=== PATIENT | female | born 1980 | race Caucasian/White ===

== ENCOUNTER 2023-09-28 09:54 | Inpatient (IN) ==
--- NOTE | 2023-09-15 10:33 | PAT Medication Instructions ---
Medication Instructions Date of Service September 15, 2023 Home Medications ascorbic acid (vitamin C) 500 mg tablet (Vitamin C) 500 mg PO QPM cetirizine 10 mg tablet 10 mg PO QAM cholecalciferol (vitamin D3) 25 mcg (1,000 unit) chewable tablet (Vitamin D3) 25 mcg PO QPM divalproex 250 mg tablet,delayed release (Depakote) 250 mg PO BID famotidine 40 mg tablet 40 mg PO QPM ferrous sulfate 325 mg (65 mg iron) tablet 325 mg PO BID gabapentin 300 mg capsule 300 mg PO UD lamotrigine 150 mg tablet (Lamictal) 150 mg PO QPM lamotrigine 200 mg tablet (Lamictal) 200 mg PO QAM multivitamin 1 tab PO QPM pantoprazole 40 mg tablet,delayed release 40 mg PO QAM risperidone 1 mg tablet (Risperdal) 1 mg PO UD Continue as directed risperidone 1 mg tablet (Risperdal) 1 mg PO UD gabapentin 300 mg capsule 300 mg PO UD DO NOT take the morning of surgery cetirizine 10 mg tablet 10 mg PO QAM ferrous sulfate 325 mg (65 mg iron) tablet 325 mg PO BID Take morning of surgery With a small sip of water, OTHERWISE NOTHING TO EAT OR DRINK AFTER MIDNIGHT: divalproex 250 mg tablet,delayed release (Depakote) 250 mg PO BID lamotrigine 200 mg tablet (Lamictal) 200 mg PO QAM pantoprazole 40 mg tablet,delayed release 40 mg PO QAM Take evening before surgery ascorbic acid (vitamin C) 500 mg tablet (Vitamin C) 500 mg PO QPM cholecalciferol (vitamin D3) 25 mcg (1,000 unit) chewable tablet (Vitamin D3) 25 mcg PO QPM divalproex 250 mg tablet,delayed release (Depakote) 250 mg PO BID famotidine 40 mg tablet 40 mg PO QPM ferrous sulfate 325 mg (65 mg iron) tablet 325 mg PO BID lamotrigine 150 mg tablet (Lamictal) 150 mg PO QPM multivitamin 1 tab PO QPM Other Notes If you have any questions please call us at [phone] or [phone] or [phone] or [phone]
--- NOTE | 2023-09-17 11:59 | Anesthesiology Consultation ---
Date of Service September 17, 2023 Assessment & Plan (1) Encounter for pre-operative examination: Plan - check urine test STAT am DOS. - will request copy of [facility] sleep study 09/15/23, Dr. Bustamante and left leg Doppler from [facility]. - upcoming [facility] PCP appointment pre-op 09/21/23 Dr. Pita Damon and pre-op CXR. PAT testing to be faxed to PCP. - request CXR done at [facility] this week per patient's care team. They were also provided with order to have done at PCP office 09/21/23 if no CXR is received from [facility]. Only CXR received was from 08/2022, no CXR was available on patient portal at PAT visit. I contacted Kassy who patient requested be primary contact and she is aware, states they will have CXR done 09/21/23. - Patient and mother, Poornima, are requesting patient's mother remain overnight. They state this was already discussed with case management and they are aware that determination is made the day of surgery, denied concerns with this but are hopeful she can remain overnight. I also sent an email to the OR and housing supervisors regarding request. Patient had anxiety at PAT visit regarding surgery which was alleviated with breathing techniques guided by her mother and friend. I inquired if patient would be interested in a visit from a therapy dog during hospitalization and she expressed she would like this if possible. I notified [place] contact and they will plan to coordinate visiting patient with therapy dog during her hospitalization. Chart Review Chart Review: Pending: Refer to Additional Notes / Consult section and Patient seen in Pre Admission Testing Teaching & Discussion Pre-Anesthesia Teaching/Discussion Notes: Instructed NPO after midnight before surgery, except medications with 15 cc of water. Medication instructions provided according to the PAT guidelines. History Surgery Operation Date: 09/28/23 09:35 Proposed Procedures p L4-L5 Decompression and Fusion with Spinal Cord Monitoring - Rudy Shah, She is accompanied today by her mother Poornima and Kassy, friend. 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 propranolol [From Inderal LA] Allergy Intermediate Hypotension Verified 09/14/23 15:34 hydromorphone [From Dilaudid] Allergy Mild "makes me Verified 09/14/23 15:34 tired" latex Allergy Mild Rash Verified 09/14/23 15:34 Sulfa (Sulfonamide Allergy Mild Rash Verified 09/14/23 15:34 Antibiotics) Iodinated Contrast Media Allergy Unknown unsure of Verified 09/14/23 15:34 reaction Medications Home Medications Medication Instructions Recorded Confirmed Last Taken ascorbic acid (vitamin C) 500 mg 500 mg PO QPM 09/14/23 09/14/23 Unknown tablet (Vitamin C) cetirizine 10 mg tablet 10 mg PO QAM 09/14/23 09/14/23 Unknown cholecalciferol (vitamin D3) 25 25 mcg PO QPM 09/14/23 09/14/23 Unknown mcg (1,000 unit) chewable tablet (Vitamin D3) divalproex 250 mg tablet,delayed 250 mg PO BID 09/14/23 09/14/23 Unknown release (Depakote) famotidine 40 mg tablet 40 mg PO QPM 09/14/23 09/14/23 Unknown ferrous sulfate 325 mg (65 mg 325 mg PO BID 09/14/23 09/14/23 Unknown iron) tablet gabapentin 300 mg capsule 300 mg PO UD 09/14/23 09/14/23 Unknown lamotrigine 150 mg tablet 150 mg PO QPM 09/14/23 09/14/23 Unknown (Lamictal) lamotrigine 200 mg tablet 200 mg PO QAM 09/14/23 09/14/23 Unknown (Lamictal) multivitamin 1 tab PO QPM 09/14/23 09/14/23 Unknown pantoprazole 40 mg tablet,delayed 40 mg PO QAM 09/14/23 09/14/23 Unknown release risperidone 1 mg tablet (Risperdal) 1 mg PO UD 09/14/23 09/14/23 Unknown Past Medical History Medical History (Updated 09/17/23 @ 12:23 by Miriam Flor PA-C) Anemia Bipolar disorder Degenerative disc disease Dysphagia "barium swallowing study done 09/14/23 at [facility]" normal results per care team Elevated lactic acid level following up with [facility] endocrinology GERD (gastroesophageal reflux disease) controlled, stable per pt History of DVT (deep vein thrombosis) bilat lower extremities years ago-recent RLE Doppler negative History of esophageal dilatation Migraine Post traumatic stress disorder Psychogenic nonepileptic seizure last 07/2023 Patient denies h/o stroke, heart attack, heart failure, DM, HTN, or blood transfusions. 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 History of bunionectomy left History of cholecystectomy History of colonoscopy History of esophagogastroduodenoscopy (EGD) History of tooth extraction S/P hardware removal left foot 05/2023 Past Anesthesia History No Family Hx of Anesthesia Complications and Other (difficult to wake after anesthesia) History of PONV No Hx of PONV and Hx of Motion Sickness Social History Smoking Status: Former smoker Do You Dip or Chew Tobacco: No Smoking End Date: late Hx Alcohol Use: No substance use type: does not use Review of Systems Patient denies chest pain, shortness of breath, dyspnea on exertion, fever, chills, cough, wheezing, or palpitations. Physical Exam Vital Signs Vitals BP 115/83 P 88 TEMP 97.9 SP02 96% on RA RESP 18 Physical Patient resting comfortably in chair in no acute distress, alert and oriented, responding appropriately throughout visit Full cervical extension range of motion without pain TMD 3.5 finger breadths Mallampati Score 2 Dentition: edentulous, full upper and lower dentures Lungs: normal respiratory effort. Good air movement, clear throughout to auscultation, no adventitious breath sounds Cardiac: regular rate and rhythm, no murmurs noted Carotid arteries: negative bruit bilat Lab Results Anesthesia Preop Results Results Anesthesia Widget: WBC 4.98 K/ul (4.8-10.8) 09/17/23 Hgb 12.9 g/dl (12.0-16.0) 09/17/23 Hct 38.9 % (37.0-47.0) 09/17/23 Plt 256 K/uL (130-400) 09/17/23 Na 140 mmol/L (136-145) 09/17/23 K 4.3 mmol/L (3.5-5.1) 09/17/23 Cl 104 mmol/L (98-107) 09/17/23 CO2 30 mmol/L (21-32) 09/17/23 BUN 15 mg/dl (6-23) 09/17/23 Creat 0.59 mg/dl (0.6-1.2) L 09/17/23 Glucose Level 76 mg/dl (70-99(Fasting)) 09/17/23 PT 10.9 Seconds (9.0-12.0) 09/17/23 PTT 36 Seconds (21-31) H 09/17/23 INR 1.0 (0.9-1.1) 09/17/23 Urine Color Yellow 09/17/23 Urine Appearance Clear (Clear) 09/17/23 Urine pH 6.5 (4.5-7.5) 09/17/23 Urine Specific [place] 1.017 (1.000-1.030) 09/17/23 Urine Protein Negative (Negative) 09/17/23 Urine Glucose (UA) Negative (Negative) 09/17/23 Urine Ketones Negative (Negative) 09/17/23 Urine Blood Negative (Negative) 09/17/23 Urine Nitrite Negative (Negative) 09/17/23 Urine Bilirubin Negative (Negative) 09/17/23 Urine Urobilinogen Negative (Negative) 09/17/23 Urine Leukocyte Esterase Negative (Negative) 09/17/23 Blood Type O Positive 09/17/23 Antibody Screen NEGATIVE 09/17/23 Testing Electrocardiogram Date: 09/17/23 NSR, rate 81 bpm Incomplete RBBB
[~2023-09-28 09:54] MED LIST: MIDAZOLAM HCL 1 MG/ML 2ML VIAL ONE; fentaNYL citrate PF 100 MCG/2 ML VIAL ONE
[2023-09-28] MEDS ORDERED: ONDANSETRON INJ 2 MG/ML 2 ML VIAL IV PRN ×2 (11:07→15:26)
[2023-09-28] MEDS ORDERED: ePHEDrine sulfate 50 MG/ML AMP IV PRN (11:07)
[2023-09-28] MEDS: ACETAMINOPHEN 500 MG TAB PO SCH (11:07)
[2023-09-28] MEDS ORDERED: ATROPINE SULFATE 0.1 MG/ML 10ML SYR IV PRN (11:07)
[2023-09-28] MEDS: GABAPENTIN 900 MG DOSE PO SCH (11:08)
--- NOTE | 2023-09-28 11:13 | History & Physical Bridge Note ---
Date of Service September 28, 2023 History & Physical Bridge Note I have examined the patient, reviewed the History & Physical and in the interval since the performance of the History & Physical I have noted the following changes of clinical significance: no changes noted
--- NOTE | 2023-09-28 11:14 | History & Physical Report ---
Date of Service September 28, 2023 Assessment & Plan (1) Neurogenic claudication due to lumbar spinal stenosis: Plan: L4-L5 decompression and fusion History of Present Illness Chief Complaint: Back and bilateral leg pain Primary Care Provider: Pita Damon MD This is a 43-year-old female presents to clinic persistent back and leg pain Course of nonoperative care she is here for surgical invention. 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 propranolol [From Inderal LA] Allergy Intermediate Hypotension Verified 09/28/23 10:33 hydromorphone [From Dilaudid] Allergy Mild "makes me Verified 09/28/23 10:33 tired" latex Allergy Mild Rash Verified 09/28/23 10:33 Sulfa (Sulfonamide Allergy Mild Rash Verified 09/28/23 10:33 Antibiotics) Iodinated Contrast Media Allergy Unknown unsure of Verified 09/28/23 10:33 reaction Home Medications Medication Instructions Recorded Confirmed Type ascorbic acid (vitamin C) 500 mg 500 mg PO QPM 09/14/23 09/28/23 History tablet (Vitamin C) cetirizine 10 mg tablet 10 mg PO QAM 09/14/23 09/28/23 History cholecalciferol (vitamin D3) 25 25 mcg PO QPM 09/14/23 09/28/23 History mcg (1,000 unit) chewable tablet (Vitamin D3) divalproex 250 mg tablet,delayed 250 mg PO BID 09/14/23 09/28/23 History release (Depakote) famotidine 40 mg tablet 40 mg PO QPM 09/14/23 09/28/23 History ferrous sulfate 325 mg (65 mg 325 mg PO BID 09/14/23 09/28/23 History iron) tablet gabapentin 300 mg capsule 300 mg PO UD 09/14/23 09/28/23 History lamotrigine 150 mg tablet 150 mg PO QPM 09/14/23 09/28/23 History (Lamictal) lamotrigine 200 mg tablet 200 mg PO QAM 09/14/23 09/28/23 History (Lamictal) multivitamin 1 tab PO QPM 09/14/23 09/28/23 History pantoprazole 40 mg tablet,delayed 40 mg PO QAM 09/14/23 09/28/23 History release risperidone 1 mg tablet (Risperdal) 1.5 mg PO QAM 09/14/23 09/28/23 History Past Med/Surg History Medical History (Updated 09/28/23 @ 11:14 by Rudy Shah DO) History of DVT (deep vein thrombosis) bilat lower extremities years ago-recent RLE Doppler negative Psychogenic nonepileptic seizure last 07/2023 Elevated lactic acid level following up with [facility] endocrinology Degenerative disc disease History of esophageal dilatation Dysphagia "barium swallowing study done 09/14/23 at [facility]" normal results per care team GERD (gastroesophageal reflux disease) controlled, stable per pt Anemia Post traumatic stress disorder Bipolar disorder Migraine Surgical History 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 History of anesthesia reaction very difficulty to wake up S/P hardware removal left foot 05/2023 History of bunionectomy left History of esophagogastroduodenoscopy (EGD) History of colonoscopy History of cholecystectomy History of tooth extraction Family History Other No family history of adverse response to anesthesia Social History Smoking Status: Former smoker Tobacco Type: Cigarettes Smoking End Date: late ; Second Hand Exposure: No; Do You Dip or Chew Tobacco: No; Hx Alcohol Use: No Preferred Language: Romanian Developer Analyst Required: No Beliefs That Will Affect Care: None Current Living Situation: Alone Current Living Situation Comment: friends assist Feels Safe at Home: Yes Safety Concerns: Feels Safe At This Time Assistive Devices: Cane, Denture - Upper, Denture - Lower, Glasses, Walker and Wheelchair Physical Exam Physical Exam: Patient is alert and oriented Heart regular rhythm Lungs clear Results & Data Results & Data Vital Signs (Past 12 Hours) Vital Signs Temp Pulse Resp BP Pulse Ox O2 Del Method 09/28/23 10:33 36.6 C 91 H 18 124/88 100 Room Air
[2023-09-28] MEDS: LR 15ML/HR IV SCH (11:26)
[2023-09-28] MEDS: ceFAZolin 2000MG 2,000 MG/15 ML SYR IV SCH ×2 (11:47→20:39)
[2023-09-28] MEDS: LR 60ML/HR IV SCH (11:49)
[2023-09-28] MEDS ORDERED: PROPOFOL IV EMULSION 10 MG/ML 20 ML VIAL IV ONE (12:51)
[2023-09-28] MEDS ORDERED: ONDANSETRON INJ 2 MG/ML 2 ML VIAL ONE ×2 (12:51→13:41)
[2023-09-28] MEDS ORDERED: LIDOCAINE 2% 2 ML VIAL/AMP(20MG/ML) INFIL ONE (12:51)
[2023-09-28] MEDS ORDERED: ROCURONIUM BROMIDE 10 MG/ML 5 ML VIAL IV ONE (12:51)
[2023-09-28] MEDS ORDERED: DEXAMETHASONE SOD INJ 4 MG/ML VIAL ONE (12:51)
[2023-09-28] MEDS ORDERED: fentaNYL citrate PF 100 MCG/2 ML VIAL ONE (12:51)
[2023-09-28] MEDS ORDERED: ePHEDrine sulfate 50 MG/ML AMP ONE (12:52)
[2023-09-28] MEDS: ceFAZolin 330 MG/ML 1 GM VIAL ONE (13:14)
[2023-09-28] MEDS ORDERED: GLYCOPYRROLATE 0.2 MG/ML VIAL ONE (13:29)
[2023-09-28] MEDS ORDERED: NEOSTIGMINE METHYLSULFATE 1 MG/ML 10ML VIAL ONE (13:29)
[2023-09-28] MEDS: BUPIVACAINE/EPINEPHRINE 0.25% 1:200,000 30 ML VIAL ONE (13:33)
[2023-09-28] MEDS: FLOSEAL HEMOSTATIC MATRIX 10ML TOP ONE (13:33)
--- NOTE | 2023-09-28 13:45 | Operative Report ---
Post Operative Report Pre & Post Diagnosis Operation Date: 09/28/23 11:35 Pre-Op Diagnosis: Neurogenic Claudication due to Lumbar Spinal Stenosis Lumbar spinal stenosis L4-5 Obesity Post-Op Diagnosis: Same I identified the patient and participated in the time-out.: Yes Procedure Operation Date: 09/28/23 11:35 Actual Procedures #1 lumbar decompression with bilateral medial facetectomies and foraminotomies L3-L4 L4-5. #2 posterior spinal fusion L4-L5. #3 placed posterior instrumentation L4-L5. #4 interbody fusion L4-5. #5 placement Spira 8 x 22 mm at L4-L5. #6 placement locally harvested morselized autograft in the posterior gutters. #7 placement infuse collagen sponge combined with Koros bone graft in the posterior lateral gutters and Morpheus bone graft in the interbody space. Surgeon Rudy Shah, DO Cardiac Monitor Mary Ellen Luu Estimated Blood Loss 300 Findings See Below Patient is 5 foot 4 weighing over 92 kg with a BMI in excess of 34. Patient's body habitus did contribute to significant technical difficulty with positioning exposure and the procedure itself adding at least 50% increased operative time. Specimens None Indications This is a 43-year-old female presents above-mentioned diagnosis after failing course of nonoperative care is here for surgical invention. Description of Procedure Patient was met with identified informed consent obtained. Patient was then taken to the operative suite underwent intubation placed in a prone position on the Zeus table on top of the Geovani frame. All bony prominences well-padded eyes inspected to ensure no external pressure placed upon the. This point lumbar spine was prepped and draped in normal sterile fashion. Sharp dissection with the assistance of Bovie cautery performed down to and exposing the lamina transverse processes of L4 and L5 bilaterally. I then performed a complete laminectomy of L4 including bilateral medial facetectomies and foraminotomies addressing severe spinal stenosis. I also proceeded to perform a partial laminectomy of L3 including bilateral medial facetectomies for complete decompression of the exiting root. Pedicle screws then placed at L4-5 bilaterally with assistance of fluoroscopy and the purposes ella placed. By way of a transforaminal approach on the right a complete discectomy of L4-L5 was performed endplates guided to subcortical bleeding bone and an 8 x 22 mm Spira cage filled with Morpheus bone graft tapped in position. The rods were then locked in final position bilaterally. The transverse processes of L4-5 burred to subcortically bone. Infuse collagen sponge combined with Koros and local autograft placed in the posterior lateral gutters. 15 round MARTHA drain inserted. The incision was then closed with 1 Vicryl the fascia 2-0 Vicryl subcutaneously and 4 Monocryl for final skin closure. Steri-Strips sterile dressing placed. Patient waken taken PACU stable condition. Please note spinal cord monitoring was utilized at the procedure no changes noted. Lastly Mary Ellen Luu was present at the entire surgery and all the patient positioning complex portion of the surgery and final skin closure. I attest to the content of the Intraoperative Record and any orders documented therein. Any exceptions are noted below.
--- NOTE | 2023-09-28 14:16 | Fluoroscopy Report ---
FL lumbar spine 2-3V CLINICAL HISTORY: L4-L5 DECOMPRESSION AND FUSION COMPARISON STUDY: None. FLUOROSCOPY TIME: 32.7 seconds. Ka, r: 54.80 mGy FLUOROSCOPIC IMAGES: 2 FINDINGS: Fluoroscopy was provided during L4-L5 discectomy with interbody spacer placement, posterior decompression and pedicle screw fusion. IMPRESSION: Fluoroscopy provided during L4-L5 decompression and fusion. ACT 112: Negative or not required by law. Electronically signed by: James Narvaez M.D. 09/28/2023 2:13 PM
--- NOTE | 2023-09-28 14:42 | Anesthesiology Progress Note ---
Date of Service September 28, 2023 Anesthesia Post Procedure Vital Signs Vital Signs: Temp Pulse Resp BP Pulse Ox O2 Del Method O2 Flow Rate 09/28/23 14:35 36.3 C L 73 14 116/76 98 Oxymask 3 09/28/23 14:25 77 15 118/70 98 Oxymask 3 09/28/23 14:10 68 12 122/63 98 Oxymask 5 09/28/23 13:59 36.6 C 76 12 123/55 L 98 Oxymask 5 09/28/23 10:33 36.6 C 91 H 18 124/88 100 Room Air Pain Intensity Bilateral Back: Pain Intensity: 0 Transfer of Care Handoff Completed per policy Notes Mental Status: alert / awake / arousable and participated in evaluation Patient Amnestic to Procedure: Yes Nausea / Vomiting: adequately controlled Pain: improving with treatment Airway Patency, RR, SpO2: stable & adequate BP & HR: stable & adequate Hydration State: stable & adequate Anesthetic Complications: no major complications apparent and Pt Satisfied with anesthetic care
[2023-09-28] MEDS: fentaNYL citrate PF 100 MCG/2 ML VIAL IV PRN (14:50)
[2023-09-28] MEDS ORDERED: ONDANSETRON 4 MG OD TAB PO PRN (15:26)
[2023-09-28] MEDS ORDERED: DO NOT ADMINISTER FLU VACCINE PRN (15:26)
[2023-09-28] MEDS ORDERED: hydrOXYzine HCl 25 MG TAB PO PRN (15:26)
[2023-09-28] MEDS ORDERED: MAGNESIUM HYDROXIDE SUSP 30 ML UDC PO PRN (15:26)
[2023-09-28] MEDS ORDERED: bisacodyL 10 MG SUPP PR PRN (15:26)
[2023-09-28] MEDS ORDERED: PROMETHAZINE HCL 12.5 MG in SODIUM CHLORIDE 0.9% 50 ML IV PRN (15:26)
[2023-09-28] MEDS ORDERED: METOCLOPRAMIDE HCL INJ 5 MG/ML 2 ML VIAL IV PRN (15:26)
[2023-09-28] MEDS ORDERED: LORazepam 0.5 MG in SYRINGE 0.25 ML IV PRN (15:26)
[2023-09-28] MEDS ORDERED: NALOXONE HCL 0.4 MG/1 ML VIAL/CARP IV PRN (15:26)
[2023-09-28] MEDS ORDERED: DO NOT ADMINISTER PNEUMOCOCCAL VACCINE PRN (15:26)
[2023-09-28] MEDS ORDERED: ALUMINUM/MAGNESIUM SUSP 30 ML UDC PO PRN (15:26)
[2023-09-28] MEDS ORDERED: SOD PHOSPHATE/SOD BIPHOSPHATE ENEMA 132 ML BTL PR PRN (15:26)
[2023-09-28] MEDS ORDERED: FAMOTIDINE 20 MG TAB PO PRN (15:26)
[2023-09-28] MEDS ORDERED: LORazepam 0.5 MG TAB PO PRN (15:26)
[2023-09-28] MEDS ORDERED: ACETAMINOPHEN 500 MG TAB PO PRN (15:26)
[2023-09-28] MEDS ORDERED: diphenhydrAMINE Capsule 25 MG CAP PO PRN (15:26)
[2023-09-28] MEDS: LACTATED RINGER'S 1,000 ML IV SCH (15:50)
[2023-09-28] MEDS: MoRPHine SULFATE 4 MG/ML 1 ML CARP\\VIAL IV PRN (16:08)
[2023-09-28] MEDS: MoRPHine SULFATE 2 MG/ML CARP IV PRN (20:39)
[2023-09-28] MEDS: GABAPENTIN 300 MG CAP PO SCH ×2 (20:40→20:47)
[2023-09-28] MEDS: FERROUS SULFATE 325 MG TAB PO SCH (20:40)
[2023-09-28] MEDS: lamoTRIgine 25 MG TAB PO SCH (20:40)
[2023-09-28] MEDS: DOCUSATE SODIUM/SENNA 50/8.6MG TAB PO SCH (20:41)
[2023-09-28] MEDS: DIVALPROEX DELAY RELEASE 250 MG TABEC PO SCH (20:41)
[2023-09-28] MEDS: FAMOTIDINE 40 MG TABLET PO SCH (20:41)
[2023-09-28] MEDS: ASCORBIC ACID 500 MG TAB PO SCH (20:41)
[2023-09-28] MEDS: CHOLECALCIFEROL 25 MCG (1000 UNITS) TAB PO SCH (20:41)
[2023-09-28] MEDS: MULTIVITAMIN TAB PO SCH (20:42)
[2023-09-28] MEDS: lamoTRIgine 100 MG TAB PO SCH (20:42)
[2023-09-28] MEDS: ACETAMINOPHEN 1,000 MG/100 ML VIAL IV PRN (23:18)
[2023-09-28] MEDS: oxyCODONE HCL IR 5 MG TAB (IMMEDIATE RELEASE) PO PRN (23:18)
[2023-09-29] MEDS: POLYETHYLENE (MIRALAX) 17 GM PACK PO SCH (06:32)
[2023-09-29 07:29] LABS: Basophils # (auto) 0.02 K/uL (0.00-0.20); Basophils % (auto) 0.2 %; Eosinophils # (auto) 0.01 K/uL (0.00-0.50); Eosinophils % (auto) 0.1 %; Hematocrit (blood only) 31.5 % (37.0-47.0); Hemoglobin 10.5 g/dl (12.0-16.0); Immature Granulocytes # (auto) 0.04 K/uL (0.01-0.20); Immature Granulocytes % (auto) 0.4 %; Lymphocytes # (auto) 2.25 K/uL (1.20-3.40); Lymphocytes % (auto) 22.2 %; Mean Corpuscular Hemoglobin 34.2 pg (25.0-34.0); Mean Corpuscular Hgb Conc 33.3 g/dL (32.0-36.0); Mean Corpuscular Volume 102.6 fL (80.0-100.0); Mean Platelet Volume 9.6 fL (9.4-12.4); Monocytes # (auto) 1.28 K/uL (0.11-0.59); Monocytes % (auto) 12.6 %; Neutrophils # (auto) 6.54 K/uL (1.40-6.50); Neutrophils % (auto) 64.5 %; Platelet Count 232 K/uL (130-400); RDW Coefficient of Variation 12.4 % (11.5-14.5); RDW Standard Deviation 46.7 fL (36.4-46.3); Red Blood Count 3.07 M/uL (4.20-5.40); White Blood Count 10.14 K/ul (4.8-10.8)
[2023-09-29 07:45] LABS: BUN Creatinine Ratio 11.3 (10-20); Calcium 9.4 mg/dl (8.6-10.3); Creatinine Clr Calc Pharmacy 126.2 ml/min; Est GFR (African American) 126.2 ml/min; Est GFR (Non-African American) 108.9 ml/min; Potassium 4.1 mmol/L (3.5-5.1)
--- NOTE | 2023-09-29 08:36 | Consultation ---
Date of Consultation September 29, 2023 Assessment & Plan (1) Neurogenic claudication due to lumbar spinal stenosis: (2) Psychogenic nonepileptic seizure: (3) History of DVT (deep vein thrombosis): (4) Anemia: (5) Dysphagia: (6) History of brain shunt: (7) Bipolar disorder: (8) GERD (gastroesophageal reflux disease): Plan Ms. Crouch is a 43 year old that presents to [facility] for an elective decompression and fusion of L4-L5 under the care of Dr. Shah after failed conservative management. PMH includes: H/O DVT, psychogenic nonepileptic seizures, bipolar disorder, H/O brain shunt, and GERD. Patient surgery occurred yesterday 09/27 and post operatively she is doing well. She had an EBL of 300mL and Hgb this morning 10.5. She is slightly soft on her BP, does not take any anti-hypertensives. She took two doses of IV Morphine yesterday and Tylenol around midnight last night for pain control. She is passing flatulence and advancing her diet; tolerating a soft diet without N/V. Neurogenic claudication due to lumbar spinal stenosis: POD#1 s/p decompression and fusion L4-L5 with Dr. Shah. Per ortho for pain control, wound care, anticoagulation and activities. Monitor H&H, today Hgb 10.5; baseline pre op 12.9 Has MARTHA drain x1 continue incentive spirometry PT/OT when appropriate Psychogenic nonepileptic seizure: Chronic Takes Depakote and Lamictal; continue Last seizure Anemia: Acute Hemoglobin 10.5 EBL during surgery 300 mL No active signs of overt bleeding Preop Hgb on 09/16 12.9 Recheck Hgb at 1200 to ensure holding H/O DVT: Chronic Occurred years ago; not on any A/C Dysphagia: Chronic Barium swallow performed at [facility] negative Advancing diet nicely Bipolar disorder: Chronic Takes Risperdal; continue GERD: Chronic Takes pantoprazole; continue 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 All of the aforementioned completed while collaborating with the assigned attending physician for a full treatment plan. Please see their addendum for further details. Supervising Physician Co-Signing Physician Notes 43-year-old lady was seen and examined at bedside as a follow-up of medical management status post lumbar spine surgery. Postoperative day 1. Patient reports pain fairly under control, MARTHA drain with minimal serosanguineous collection noted. Patient reports LLE radicular symptoms improvement. Blood pressure on soft side, continue with IV fluid. Monitor for acute blood loss anemia. Take other home medications as able. On examination: Patient sitting up in chair, on room air, NAD, low back with clean dressing without soakage, MARTHA drain with minimal serosanguineous collection noted. Rest of the examination as above. I have seen and examined the patient and have discussed the case with the provider above. I agree with the assessment and plan as stated. History of Present Illness Requesting Physician: Dr. Shah Reason for Consultation: post operative medical consult Attending Physician: Freddy Gerard MD History of Present Illness Ms. Crouch is a 43 year old female that presents to [facility] for an elective decompression and fusion of L4-L5 under the care of Dr. Shah after failed conservative management. PMH includes: H/O DVT, psychogenic nonepileptic seizures, bipolar disorder, H/O brain shunt, and GERD. Patient surgery occurred yesterday 09/27 and post operatively she is doing well. She had an EBL of 300mL and Hgb this morning 10.5. She is slightly soft on her BP, does not take any anti-hypertensives. Repeat BP 116 systolic. Has fluids infusing. She took two doses of IV Morphine yesterday and Tylenol around midnight last night for pain control. She is passing flatulence and advancing her diet; tolerating a soft diet without N/V. Pt denies STANTON, dizziness, SOB, chest pain, palpitations, N/V/D, dysuria, hematoch ezia, neuropathy in her extremities. She does have a component of intellect challenge; highly functioning. [facility] Hospitalist service was consulted for post-op medical management. We are available 29/12 via tiger text for any questions or concerns. Thank you kindly for consulting us. 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 propranolol [From Inderal LA] Allergy Intermediate Hypotension Verified 09/28/23 10:33 hydromorphone [From Dilaudid] Allergy Mild "makes me Verified 09/28/23 10:33 tired" latex Allergy Mild Rash Verified 09/28/23 10:33 Sulfa (Sulfonamide Allergy Mild Rash Verified 09/28/23 10:33 Antibiotics) Iodinated Contrast Media Allergy Unknown unsure of Verified 09/28/23 10:33 reaction Home Medications Medication Instructions Recorded Confirmed Type ascorbic acid (vitamin C) 500 mg 500 mg PO QPM 09/14/23 09/29/23 History tablet (Vitamin C) cetirizine 10 mg tablet 10 mg PO QAM 09/14/23 09/29/23 History cholecalciferol (vitamin D3) 25 25 mcg PO QPM 09/14/23 09/29/23 History mcg (1,000 unit) chewable tablet (Vitamin D3) divalproex 250 mg tablet,delayed 250 mg PO BID 09/14/23 09/29/23 History release (Depakote) famotidine 40 mg tablet 40 mg PO QPM 09/14/23 09/29/23 History ferrous sulfate 325 mg (65 mg 325 mg PO BID 09/14/23 09/29/23 History iron) tablet gabapentin 300 mg capsule 300 mg PO UD 09/14/23 09/29/23 History lamotrigine 150 mg tablet 150 mg PO QPM 09/14/23 09/29/23 History (Lamictal) lamotrigine 200 mg tablet 200 mg PO QAM 09/14/23 09/29/23 History (Lamictal) multivitamin 1 tab PO QPM 09/14/23 09/29/23 History pantoprazole 40 mg tablet,delayed 40 mg PO QAM 09/14/23 09/29/23 History release risperidone 1 mg tablet (Risperdal) 1.5 mg PO QAM 09/14/23 09/29/23 History Patient History Medical History (Updated 09/29/23 @ 08:33 by MICHAEL Rodriguez) History of DVT (deep vein thrombosis) bilat lower extremities years ago-recent RLE Doppler negative Psychogenic nonepileptic seizure last 07/2023 Elevated lactic acid level following up with [facility] endocrinology Degenerative disc disease History of esophageal dilatation Dysphagia "barium swallowing study done 09/14/23 at [facility]" normal results per care team GERD (gastroesophageal reflux disease) controlled, stable per pt Anemia Post traumatic stress disorder Bipolar disorder Migraine Surgical History (Updated 09/29/23 @ 08:33 by MICHAEL Rodriguez) 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 History of anesthesia reaction very difficulty to wake up S/P hardware removal left foot 05/2023 History of bunionectomy left History of esophagogastroduodenoscopy (EGD) History of colonoscopy History of cholecystectomy History of tooth extraction Family History Other No family history of adverse response to anesthesia Social History Smoking Status: Former smoker Tobacco Type: Cigarettes Smoking End Date: late ; Second Hand Exposure: No; Do You Dip or Chew Tobacco: No; Hx Alcohol Use: No Preferred Language: Mozambican Communication Ability: Effective Flatwork Feeder Required: No Beliefs That Will Affect Care: None Current Living Situation: Alone Current Living Situation Comment: friends assist Feels Safe at Home: Yes Safety Concerns: Feels Safe At This Time Assistive Devices: Walker and Other Review of Systems Review of Systems: Neuro: (-) Falls, trauma, slurred speech HEENT: (-) STANTON, dizziness, dysphagia, visual or auditory changes CV: (-) CP, palpitations, swelling Resp: (-) SOB GI: (-) appetite changes, N/V/D, bowel changes : (-) urinary changes Skin: (-) rashes Psych: (-) anxiety, depression Physical Exam Physical Exam: Neuro: AAOx4, PERRLA, no aphagia, memory changes, CNII-XII grossly intact HEENT: head normocephalic, moist mucus membranes CV: S1/S2, (-) M/G/R, (-) edema, cap refill < 3 seconds. MARTHA drain x1 roshni red bloody drainage. Resp: Lungs CTA in all huertas. On RA GI: Abdomen S/NT/ND, Ax4 bowel sounds, (-) CVA tenderness Musculoskeletal: 5/5 B/L UE strength, 3/5 B/L LE strength; (-) neuropathic symptoms Skin: (-) rashes , (-) erythema. Vertical dressing C/D/I Psych: euthymic mood Results & Data Vital Signs (Past 12 Hours) Vital Signs Temp Pulse Resp BP Pulse Ox O2 Del Method 09/29/23 06:37 36.8 C 91 H 16 99/65 L 99 Room Air 09/29/23 04:12 37.0 C 87 18 101/68 96 Room Air 09/28/23 23:08 36.8 C 95 H 18 118/76 96 Room Air Laboratory Results Short CBC 09/29/23 Range/Units 07:00 WBC 10.14 (4.8-10.8) K/ul Hgb 10.5 L (12.0-16.0) g/dl Hct 31.5 L (37.0-47.0) % Plt Count 232 (130-400) K/uL BMP 09/29/23 07:00 Sodium 136 Potassium 4.1 Chloride 102 Carbon Dioxide 28 BUN 7 Creatinine 0.62 Glucose 107 H Calcium 9.4
[2023-09-29] MEDS: PANTOprazole 40 MG TAB PO SCH (08:51)
[2023-09-29] MEDS: risperiDONE 0.5 MG TABLET PO SCH (08:51)
[2023-09-29] MEDS: CETIRIZINE HCL 10 MG TABLET PO SCH (08:52)
[2023-09-29] MEDS: lamoTRIgine 100 MG TAB PO SCH (09:13)
[2023-09-29] MEDS: dexAMETHasone 6 MG in SYRINGE 0 ML IV SCH (10:16)
--- NOTE | 2023-09-29 10:29 | Orthopedic Progress Note ---
Date of Service September 29, 2023 Assessment & Plan (1) Neurogenic claudication due to lumbar spinal stenosis: Plan: This time continue physical therapy monitor MARTHA operatively discharge home next few days. Admission and Anticipated Discharge Date Admission Date: September 28, 2023 Subjective Back pain controlled leg pain markedly improved Physical Exam Physical Exam: Patient is in the chair at the bedside. Skin strength testing. He is comfortable. Results & Data Vital Signs (Past 12 Hours) Vital Signs Temp Pulse Resp BP Pulse Ox O2 Del Method 09/29/23 09:14 94 H 18 116/77 97 Room Air 09/29/23 06:37 36.8 C 91 H 16 99/65 L 99 Room Air 09/29/23 04:12 37.0 C 87 18 101/68 96 Room Air 09/28/23 23:08 36.8 C 95 H 18 118/76 96 Room Air Queries Orthopedic Spine Obesity: Yes
[2023-09-29 12:21] LABS: Hematocrit (blood only) 33.6 % (37.0-47.0); Hemoglobin 11.1 g/dl (12.0-16.0); Mean Corpuscular Hemoglobin 33.8 pg (25.0-34.0); Mean Corpuscular Volume 102.4 fL (80.0-100.0); Mean Platelet Volume 9.4 fL (9.4-12.4); Platelet Count 214 K/uL (130-400); RDW Coefficient of Variation 12.5 % (11.5-14.5); RDW Standard Deviation 47.4 fL (36.4-46.3); Red Blood Count 3.28 M/uL (4.20-5.40); White Blood Count 9.33 K/ul (4.8-10.8)
[2023-09-29] MEDS ORDERED: NYSTATIN POWDER 15GM BTL EXT PRN (16:49)
--- NOTE | 2023-09-30 10:45 | Orthopedic Progress Note ---
Date of Service September 30, 2023 Assessment & Plan (1) Neurogenic claudication due to lumbar spinal stenosis: Plan: At this time we will continue physical therapy monitor MARTHA output with the discharge home tomorrow. Admission and Anticipated Discharge Date Admission Date: September 28, 2023 Subjective Back pain controlled leg pain improved Physical Exam Physical Exam: Patient is in bed. She is comfortable. Is for strength testing. Results & Data Vital Signs (Past 12 Hours) Vital Signs Temp Pulse Resp BP Pulse Ox O2 Del Method 09/30/23 07:45 37.2 C 95 H 18 108/67 94 Room Air Queries Orthopedic Spine Obesity: Yes
--- NOTE | 2023-09-30 15:31 | Hospitalist Progress Note ---
Date of Service September 30, 2023 Assessment & Plan (1) Neurogenic claudication due to lumbar spinal stenosis: (2) Psychogenic nonepileptic seizure: (3) History of DVT (deep vein thrombosis): (4) Anemia: (5) Dysphagia: (6) History of brain shunt: (7) Bipolar disorder: (8) GERD (gastroesophageal reflux disease): Plan Ms. Crouch is a 43 year old that presents to [facility] for an elective decompression and fusion of L4-L5 under the care of Dr. Shah after failed conservative ma nagement. PMH includes: H/O DVT, psychogenic nonepileptic seizures, bipolar disorder, H/O brain shunt, and GERD. Patient surgery occurred 09/27 and post operatively she is doing well. She had an EBL of 300mL. Neurogenic claudication due to lumbar spinal stenosis: POD#2 s/p decompression and fusion L4-L5 with Dr. Shah. Per ortho for pain control, wound care, anticoagulation and activities. Monitor H&H, today Hgb 10.5; baseline pre op 12.9 Has MARTHA drain x1 continue incentive spirometry PT/OT when appropriate Patient reports improvement in her radicular signs symptoms. Psychogenic nonepileptic seizure: Chronic Takes Depakote and Lamictal; continue Acute blood loss anemia: Preop hemoglobin of 12.9, postoperatively Hg 10.5. Anemia likely related to perioperative blood loss and dilutional component. Patient without any chest pain/palpitations/dizziness. Continue to monitor. H/O DVT: Chronic Occurred years ago; not on any A/C Dysphagia: Chronic Barium swallow performed at [facility] negative Advancing diet nicely Bipolar disorder: Chronic Takes Risperdal; continue GERD: Chronic Takes pantoprazole; continue History of brain shunt: Removed when patient was 1 or 1 years old Disposition: PCP: [facility] CODE STATUS: Full code VTE prophylaxis: Per admitting team Teds and SCDs Admission and Anticipated Discharge Date Admission Date: September 28, 2023 Subjective Patient is seen and examined at bedside. Patient was sitting up in chair, on room air, NAD, resting comfortably. Patient reports eating okay and moving bowels okay. Patient reports operative site pain under control, reports improvement in neurological signs or symptoms. Denies any other complaints. Physical Exam Physical Exam: Neuro: AAOx4, PERRLA, no aphagia, memory changes, CNII-XII grossly intact HEENT: head normocephalic, moist mucus membranes CV: S1/S2, (-) M/G/R, (-) edema, cap refill < 3 seconds. MARTHA drain x1 serosanguineous drainage -minimal. Resp: Lungs CTA in all huertas. On RA GI: Abdomen S/NT/ND, Ax4 bowel sounds, (-) CVA tenderness Musculoskeletal: 5/5 B/L UE strength, 3/5 B/L LE strength; (-) neuropathic symptoms Skin: (-) rashes , (-) erythema. Vertical dressing C/D/I Psych: euthymic mood Results & Data Results & Data Vital Signs (Past 12 Hours) Vital Signs Temp Pulse Resp BP Pulse Ox O2 Del Method 09/30/23 07:45 37.2 C 95 H 18 108/67 94 Room Air
[2023-09-30] MEDS: traMADol HCL 50 MG TABLET PO PRN (18:02)
--- NOTE | 2023-10-01 10:57 | Discharge Summary ---
Date of Service October 01, 2023 Admission HPI Per Admitting Provider This is a 43-year-old female presents to clinic persistent back and leg pain Course of nonoperative care she is here for surgical invention. 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 propranolol [From Inderal LA] Allergy Intermediate Hypotension Verified 09/28/23 10:33 hydromorphone [From Dilaudid] Allergy Mild "makes me Verified 09/28/23 10:33 tired" latex Allergy Mild Rash Verified 09/28/23 10:33 Sulfa (Sulfonamide Allergy Mild Rash Verified 09/28/23 10:33 Antibiotics) Iodinated Contrast Media Allergy Unknown unsure of Verified 09/28/23 10:33 reaction Consultations 09/28/23 15:26 Consult Hospitalist Routine Procedures Performed Operation Date: 09/28/23 11:35 Actual Procedures p L4-L5 Decompression and Fusion, Spinal Cord Monitoring(Not Applicable) - Rudy Shah DO Ordered Studies 09/28/23 13:25 FL lumbar spine 2-3V Routine Hospital Course (1) Neurogenic claudication due to lumbar spinal stenosis: Patient underwent lumbar decompression fusion tolerated as well as taken to the orthopedic floor postoperative. Postoperatively she progressed well. Excellent strength testing. MARTHA drain decreased probably. Pain controlled. Subsidy discharged home. Discharge orders instructions from the chart for further review. Total Time Total Time Spent Total Time Spent (In Minutes): 20 minutes Discharge Plan Discharge Items Patient Disposition: Home - Self-Care Reason For Visit: Spinal Stenosis, Lumbar Region with Neurogenic Cla Discharge Diagnosis: Lumbar spinal stenosis with neurogenic claudication Activity: As commented below Non-emergency contact: Primary Care Provider Call non-emergency contact if: you have any medication questions Follow-up/Referrals: Pita Damon MD [Primary Care Provider] - Diet: Regular Addtl Attending Provider Instructions: ACTIVITY RECOMMENDATIONS: SELF CARE INSTRUCTIONS AFTER THORACIC/LUMBAR FUSIONS 1. You may walk to your tolerance. It is good exercise for your legs and back. Expect some back and intermittent leg aches and pains. 2. You may perform "counter-top" level activities (make a sandwich, leticia with a project, etc.). 3. No bending or lifting of more than 10 pounds or back twisting of any nature (roll like a log when turning in bed). 4. You may ride in a car for 20-30 minutes at a time. No driving until after your first visit with your doctor. 5. Frequent changes of position and restricting sitting to 30 minutes at a time will help limit the amount of back spasms and stiffness you may experience. 6. You may discontinue the use of ambulatory aids (cane, crutches, etc.) once your strength and confidence allow. 7. You may airline reservation agent the shower and let water strike your incision when you arrive home at least once daily. Do not take a tub bath, sit in a hot tub or go into a swimming pool until after your first recheck in the office. SPECIAL CARE INSTRUCTIONS: VERY IMPORTANT TO READ AND REVIEW A. Your surgical incision has been closed with a cosmetic suture under the skin that will dissolve in about 6 weeks. In 14 days, you can use a pair of clean scissors and cut the suture that is left outside of the skin at the ends of your incision. 1. The small skin tapes can be removed 7 days after surgery if they have not fallen off by that point. 2. You may keep the wound open to air as much as possible to promote healing after post-op day number 5 unless told otherwise by your doctor. 3. If you think the wound looks like it is becoming infected (redness or worsening drainage) and/or you are experiencing fever, chill or worsening back pain and muscle spasms, contact the office so that we may evaluate you as soon as possible. B. Complications are uncommon, but please contact us if you have any signs or symptoms of: 1. wound infection (fever higher than 102.5 degrees F, redness, separation of wound, drainage, or increasing pain from the incision) 2. blood clots in legs (pain, swelling, redness and warmth in legs) 3. urinary tract infection (fever higher than 102.5 degrees F, burning upon urination or increased frequency of urination) 4. nerve problems (inability to walk on your toes or heels, numbness, loss of bowel or bladder control) 5. any other symptoms that concern you C. Please call the office at if you have any concerns or questions about your operation or recovery. D. No smoking! Smoking drastically decreases the chance of a solid fusion. E. Do not take any anti-inflammatory medications (Indocin, Advil, Motrin, Aspirin, Naprosyn, etc.) as these may inhibit the chance of a solid fusion. Tylenol is okay to take for pain. MANAGING PAIN AFTER SPINAL SURGERY 1. Narcotic medication is intended for short-term use and will be provided for surgical pain. Surgical pain usually lasts for a period of 4-6 weeks. Narcotic medication includes Percocet, Vicodin, Darvocet, Tylenol #3 or Lortab. 2. Longer-term pain is more appropriately treated with non-narcotic medication such as Tylenol ES. 3. Muscle spasm is not appropriately treated with narcotics. Muscle relaxers such as Soma, Flexeril or Skelaxin can be used along with Tylenol ES. 4. Remember that we all live with some "aches and pains". This is not unusual or uncommon after an injury or as we get older. a. Back pain is expected and may include muscle spasms for 4 to 6 weeks after surgery. The pain should gradually improve. If the pain worsens for no apparent reason, please contact the office. b. Intermittent leg pain may also be experienced and should not be concerned about unless it worsens for no apparent reason. If so, please contact the office. 5. We will provide appropriate medication within the normal guidelines of their prescribed use. We will also be very cautious and aware of potential abuse and extended duration of patients' medication needs. a. Pain medications are for your comfort and to assist with sleep and rest so that the tissue can heal. They are not provided in order to return to normal activity and should not be used through the day. To do so or worsening pain at night can result from ongoing tissue damage and development of tolerance to the prescribed medicine. 6. Please allow 2-3 days to process refills. Prescriptions will not be mailed but must be picked up at the office. FOLLOW UP VISIT: Keep your scheduled follow-up appointment. Any questions, please call the office at . Pending Studies at Discharge: No Stand-Alone Forms: My [employer], Smoking Cessation Medications and DC Order Prescriptions: New tramadol 50 mg tablet 50 mg PO Q6H PRN (Reason: pain, moderate) Qty: 30 0RF oxycodone 5 mg tablet 5 mg PO Q6H PRN (Reason: pain) Qty: 30 0RF Continued multivitamin Tablet 1 tab PO QPM lamotrigine [Lamictal] 150 mg Tablet 150 mg PO QPM lamotrigine [Lamictal] 200 mg Tablet 200 mg PO QAM divalproex [Depakote] 250 mg Tablet,Delayed Release (Dr/Ec) 250 mg PO BID cetirizine 10 mg Tablet 10 mg PO QAM famotidine 40 mg Tablet 40 mg PO QPM ascorbic acid (vitamin C) [Vitamin C] 500 mg Tablet 500 mg PO QPM pantoprazole 40 mg Tablet,Delayed Release (Dr/Ec) 40 mg PO QAM ferrous sulfate 325 mg (65 mg iron) Tablet 325 mg PO BID gabapentin 300 mg Capsule 300 mg PO UD Patient Comments: 300mg qam/600mg qpm risperidone [Risperdal] 1 mg Tablet 1.5 mg PO QAM Patient Comments: 1.5mg qam/1mg qpm cholecalciferol (vitamin D3) [Vitamin D3] 25 mcg (1,000 unit) Tablet,Chewable 25 mcg PO QPM Discharge Orders: Discharge Order (Routine); Ordered 10/01/23 Ordered By: Rudy Shah Admission Data Admit Date/Time: 09/28/23 13:48 Attending Provider: Rell Gerard Admit Provider: Rudy Shah Primary Care Provider: Pita Damon Other Providers: Liz Wilkes
--- NOTE | 2023-10-01 12:07 | Hospitalist Progress Note ---
Date of Service October 01, 2023 Assessment & Plan (1) Neurogenic claudication due to lumbar spinal stenosis: (2) Psychogenic nonepileptic seizure: (3) History of DVT (deep vein thrombosis): (4) Anemia: (5) Dysphagia: (6) History of brain shunt: (7) Bipolar disorder: (8) GERD (gastroesophageal reflux disease): Plan Ms. Crouch is a 43 year old that presents to [facility] for an elective decompression and fusion of L4-L5 under the care of Dr. Shah after failed conservative ma nagement. PMH includes: H/O DVT, psychogenic nonepileptic seizures, bipolar disorder, H/O brain shunt, and GERD. Patient surgery occurred 09/27 and post operatively she is doing well. She had an EBL of 300mL. Neurogenic claudication due to lumbar spinal stenosis: POD#3 s/p decompression and fusion L4-L5 with Dr. Shah. Per ortho for pain control, wound care, anticoagulation and activities. Monitor H&H, today Hgb 10.5; baseline pre op 12.9 Has MARTHA drain x1 continue incentive spirometry PT/OT when appropriate Patient reports improvement in her radicular signs symptoms. Psychogenic nonepileptic seizure: Chronic Takes Depakote and Lamictal; continue Acute blood loss anemia: Preop hemoglobin of 12.9, postoperatively Hg 10.5. Anemia likely related to perioperative blood loss and dilutional component. Patient without any chest pain/palpitations/dizziness. Continue to monitor. H/O DVT: Chronic Occurred years ago; not on any A/C Dysphagia: Chronic Barium swallow performed at [facility] negative Advancing diet nicely Bipolar disorder: Chronic Takes Risperdal; continue GERD: Chronic Takes pantoprazole; continue History of brain shunt: Removed when patient was [age] years old Disposition: PCP: [facility] CODE STATUS: Full code VTE prophylaxis: Per admitting team Teds and SCDs Admission and Anticipated Discharge Date Admission Date: September 28, 2023 Subjective Patient is seen and examined at bedside. Patient was sitting up in chair, on room air, NAD, resting comfortably. Patient reports eating okay and moving bowels okay. Patient reports operative site pain under control, reports improvement in neurological signs or symptoms. Denies any other complaints. Physical Exam Physical Exam: Neuro: AAOx4, PERRLA, no aphagia, memory changes, CNII-XII grossly intact HEENT: head normocephalic, moist mucus membranes CV: S1/S2, (-) M/G/R, (-) edema, cap refill < 3 seconds. Resp: Lungs CTA in all huertas. On RA GI: Abdomen S/NT/ND, Ax4 bowel sounds, (-) CVA tenderness Musculoskeletal: 5/5 B/L UE strength, 3/5 B/L LE strength; (-) neuropathic symptoms Skin: (-) rashes , (-) erythema. Vertical dressing C/D/I Psych: euthymic mood Results & Data Results & Data Vital Signs (Past 12 Hours) Vital Signs Temp Pulse Resp BP Pulse Ox O2 Del Method 10/01/23 08:55 37 C 102 H 16 112/75 93 Room Air
== END 2023-10-01 13:42 | disposition home or self-care (01) | DRG 454 ==
LOC: ASU 09:54 → 3N 13:48 → SUATTDRO 13:48